=== PATIENT | female | born 2005 | race Hispanic/Latino ===

== ENCOUNTER 2024-07-01 13:34 | Emergency (ER) | payer OTHER ==
[~2024-07-01] VITALS: Ht 167.6 cm; Wt 86.4 kg
[2024-07-01 13:35] VITALS: BP 142/77; TEMP 97.7; O2SAT 99
[2024-07-01] MEDS: ACETAMINOPHEN TAB 650MG DOSE (2X325MG) PO ONE (15:00)
[2024-07-01 15:28] LABS: RSV AMPLIFICATION NEGATIVE (NEGATIVE)
[2024-07-01] MEDS ORDERED: SODI88SP NARES (16:17)
[2024-07-01] MEDS ORDERED: AMOX875T2 PO (16:17)
[2024-07-01] MEDS ORDERED: FLON1SPR NARES (16:17)
== END 2024-07-01 16:44 | disposition home or self-care (01) ==
LOC: M ED 13:34
DX: J01.90 Acute sinusitis, unspecified (principal); J02.9 Acute pharyngitis, unspecified; Z79.2 Long term (current) use of antibiotics; Z79.899 Other long term (current) drug therapy

== ENCOUNTER 2024-10-14 08:20 | Outpatient (CLI) | payer OTHER ==
[~2024-10-14] VITALS: Ht 167.6 cm; Wt 94.8 kg
[~2024-10-14 08:20] MED LIST: AMOX875T2 PO; FLON1SPR NARES; SODI88SP NARES
[2024-10-14] MEDS ORDERED: PRENTAB9 PO (08:35)
[2024-10-14 08:41] VITALS: BP 114/65
[2024-10-14] MEDS ORDERED: FERR325T3 PO (08:41)
[2024-10-14] MEDS ORDERED: HOME MED LIST COMPLETE! XX SCH (08:55)
== END 2024-10-14 10:11 | disposition home or self-care (01) ==
LOC: M LDO 08:20
PROVIDERS: ATTEND Obstetrics & Gynecology
DX: O26.893 Other specified pregnancy related conditions, third trimester (principal); R25.2 Cramp and spasm; Z3A.29 29 weeks gestation of pregnancy
CPT/HCPCS: 59025; 76815; G0463

== ENCOUNTER 2025-01-04 17:27 | Emergency (ER) | payer OTHER ==
[~2025-01-04] VITALS: Ht 167.6 cm; Wt 91.6 kg
[~2025-01-04 17:27] MED LIST changes: +FERR325T3 PO; +PRENTAB9 PO
[2025-01-04 19:22] LABS: BASO # 0.1 10^3/uL (0.0-0.2); BASO % 0.7 % (0.0-1.0); EOS # 0.6 10^3/uL (0.0-0.5); EOS % 8.5 % (0.0-3.0); HEMOGLOBIN 12.1 g/dl (12.0-15.5); LYMPH # 1.8 10^3/uL (1.5-5.0); LYMPH % 24.5 % (24.0-44.0); MEAN CORPUSCULAR HGB CONC 32.7 g/dl (32.0-36.5); MEAN CORPUSCULAR VOLUME 88.7 fl (80.0-96.0); MONO # 0.6 10^3/uL (0.0-0.8); MONO % 8.5 % (2.0-8.0); NEUTROPHILS # 4.3 10^3/uL (1.5-8.5); NEUTROPHILS % 57.7 % (36.0-66.0); PLATELET COUNT, AUTOMATED 292 10^3/uL (150-450); RED BLOOD COUNT 4.17 10^6/uL (4.00-5.40); WHITE BLOOD COUNT 7.4 10^3/uL (4.0-10.0)
[2025-01-04 19:29] LABS: ERYTHROCYTE SEDIMENTATION RATE 54 mm/hr (0-20)
[2025-01-04 19:39] LABS: BLOOD UREA NITROGEN 8 MG/DL (9-23); C REACTIVE PROTEIN QUANTITATIV 4.84 MG/DL (<1.0); CALCIUM LEVEL 8.7 MG/DL (8.5-10.1); CARBON DIOXIDE LEVEL 24 MMOL/L (20-31); CHLORIDE LEVEL 107 MMOL/L (98-107); CREATININE FOR GFR 0.52 MG/DL (0.55-1.30); GLOMERULAR FILTRATION RATE > 60.0 (>60); GLUCOSE, FASTING 92 MG/DL (60-100); POTASSIUM SERUM 3.8 MMOL/L (3.5-5.1); SODIUM LEVEL 141 MMOL/L (136-145)
[2025-01-04] MEDS ORDERED: DICL500C PO (22:04)
[2025-01-04] MEDS ORDERED: CEPHALEXIN SUSP POWDER 250MG/5ML BTL 100ML PO ONE (22:05)
[2025-01-04] MEDS: CEPHALEXIN 500 MG CAP PO ONE (22:15)
[2025-01-04] MEDS: IBUPROFEN 600MG TAB PO ONE (22:15)
[2025-01-04 22:19] VITALS: BP 123/61; TEMP 98.2; O2SAT 100
== END 2025-01-04 22:20 | disposition home or self-care (01) ==
LOC: M ED 17:27
DX: N61.0 Mastitis without abscess (principal); Z79.2 Long term (current) use of antibiotics; Z79.899 Other long term (current) drug therapy